=== PATIENT | male | born 1970 | race Caucasian/White ===

== ENCOUNTER → 2018-06-09 | Outpatient (REF) | payer MEDICARE, MEDICAID ==
[2018-06-09 15:49] LABS: HEMATOCRIT 38.8 % (39.0-50.0); HEMOGLOBIN 13.9 g/dl (14.0-18.0); IMMATURE GRANULOCYTES 0.1 % (0.0-5.0); MEAN CELL VOLUME 92.8 fL CALC (80.0-100.0); MEAN CORPUSCULAR HGB 33.3 pG CALC (26.0-32.0); MEAN CORPUSCULAR HGB CONC 35.8 g/L CALC (32.0-36.0); NEUT# 3.45 thou/uL (1.82-7.42); RED BLOOD COUNT 4.18 mill/uL (4.70-6.10)
[2018-06-09 16:10] LABS: ALBUMIN 3.6 g/dL (3.2-5.0); ALKALINE PHOSPHATASE 105 u/l (38-126); ANION GAP 13 (6-22 (CALC)); BILIRUBIN, TOTAL 0.4 mg/dL (0.0-1.4); BUN 14 mg/dL (9-20); BUN/CREATININE RATIO 14 (12-20 (CALC)); CARBON DIOXIDE 30 mmol/l (22-30); CHLORIDE 107 mmol/l (95-108); GFR > 60 ML/MIN (>=60 (CALC)); GFR FOR AFR.AMER. > 60 ML/MIN (>=60 (CALC)); SGOT/AST 24 u/l (17-59); SODIUM 146 mmol/l (137-146)
== END | disposition home or self-care (01) ==
LOC: LAB 15:34
PROVIDERS: ATTEND Internal Medicine Infectious Disease
DX: B18.2 Chronic viral hepatitis C (principal); R53.82 Chronic fatigue, unspecified; R74.0 Nonspecific elevation of levels of transaminase and lactic acid dehydrogenase [LDH]; Q90.9 Down syndrome, unspecified

== ENCOUNTER 2018-09-04 19:36 | Emergency (ER) | payer MEDICARE, MEDICAID ==
[~2018-09-04] VITALS: Ht 144.8 cm; Wt 42.0 kg
[2018-09-04] MEDS ORDERED: VITAMI16 PO (20:07)
[2018-09-04] MEDS ORDERED: VITAMIN D PO ×2 (20:08→20:09)
[2018-09-04 20:31] LABS: HEMATOCRIT 39.1 % (39.0-50.0); HEMOGLOBIN 13.5 g/dl (14.0-18.0); IMMATURE GRANULOCYTES 0.4 % (0.0-5.0); MEAN CELL VOLUME 93.3 fL CALC (80.0-100.0); MEAN CORPUSCULAR HGB 32.2 pG CALC (26.0-32.0); MEAN CORPUSCULAR HGB CONC 34.5 g/L CALC (32.0-36.0); NEUT# 11.7 thou/uL (1.82-7.42); RED BLOOD COUNT 4.19 mill/uL (4.70-6.10)
[2018-09-04 20:53] LABS: URINE BILIRUBIN - DIPSTICK NEGATIVE (NEGATIVE); URINE BLOOD DIPSTICK NEGATIVE (NEGATIVE); URINE COLOR YELLOW; URINE GLUCOSE - DIPSTICK NEGATIVE (NEGATIVE); URINE KETONE TRACE mg/dL (NEGATIVE); URINE LEUK ESTERASE NEGATIVE (NEGATIVE); URINE NITRITE - DIPSTICK NEGATIVE (Negative); URINE PROTEIN - DIPSTICK NEGATIVE (NEG-TRACE); URINE UROBILINOGEN - DIPSTICK 0.2 E.U./dL (0.2)
[2018-09-04] MEDS ORDERED: BIAXIN500 MG PO (20:59)
[2018-09-04 21:00] VITALS: BP 106/55
== END 2018-09-04 21:23 | disposition home or self-care (01) ==
LOC: ED 19:36
PROVIDERS: Family Medicine
DX: J20.9 Acute bronchitis, unspecified (principal); R09.1 Pleurisy; F79 Unspecified intellectual disabilities

== ENCOUNTER 2021-05-01 17:07 | Emergency (ER) | payer MEDICARE, MEDICAID ==
[~2021-05-01] VITALS: Ht 144.8 cm; Wt 44.0 kg
[~2021-05-01 17:07] MED LIST: BIAXIN500 MG PO; VITAMI16 PO; VITAMIN D PO
[2021-05-01 19:52] LABS: HEMATOCRIT 43.2 % (39.0-50.0); HEMOGLOBIN 14.6 g/dl (14.0-18.0); IMMATURE GRANULOCYTES 0.3 % (0.0-5.0); MEAN CELL VOLUME 92.9 fL CALC (80.0-100.0); MEAN CORPUSCULAR HGB 31.4 pG CALC (26.0-32.0); MEAN CORPUSCULAR HGB CONC 33.8 g/dL CAL (32.0-36.0); NEUT# 2.45 thou/uL (1.82-7.42); RED BLOOD COUNT 4.65 mill/uL (4.70-6.10); RED CELL DISTRI WIDTH 14.3 % (11.5-15.5)
[2021-05-01] MEDS ORDERED: VENTOLIN HFA IN (20:34)
[2021-05-01 22:20] VITALS: BP 118/41
== END 2021-05-01 22:21 | disposition home or self-care (01) ==
LOC: ED 17:07
PROVIDERS: Family Medicine
DX: U07.1 COVID-19 (principal); F79 Unspecified intellectual disabilities

== ENCOUNTER 2023-09-09 15:40 | Observation (INO) | payer MEDICARE, MEDICAID ==
[~2023-09-09] VITALS: Ht 121.9 cm; Wt 36.6 kg
[~2023-09-09 15:40] MED LIST changes: +VENTOLIN HFA IN
--- NOTE | 2023-09-09 16:00 | NUR ---
PT ARRIVED AT DIRACT ADMIT FROM DR. RODRIGUEZ, SISTER WITH PT. PT IS ALERT AND ORIENTED TO SELF ONLY, PT IS DEVELOPMENTALY DELAY. PT HAS NO C/O PAIN AT THIS TIME. PT LUNGS CLEAR THROUGHOUT. ABD IS SOFT WITH ACTIVE BS. PT AMBULATES WITH ONE ASSIST TO BATHROOM FOR TOILETING; PT SISTER STATES HE HAS ACCIDENTS AT TIMES AND MAY NEED A BREIF. PT HAS SMALL BLISTER IN MIDDLE UPPER BACK, PT FINGERS ON LEFT HAND ARE BRUISED; PT IS UNABLE TO EXPRESS REASON; ALSO, NOTED PT LEFT EYE IS BLACK. SISTER STATES PT IS HAVING FREQUENT FALLS AND THAT IS THE REASON FOR ASMISSION. PT HAS CALL LIGHT WITHIN REACH AND SAFETY MEASURES IN PLACE AT THIS TIME.
[2023-09-09 16:07] VITALS: BP 107/51
[2023-09-09 21:00] VITALS: BP 89/45
--- NOTE | 2023-09-09 21:00 | NUR ---
PATIENT RESTING IN BED AT THIS TIME WITH SISTER ELEONORA AT BEDSIDE. PATIENT IS AWAKE AND ALERT-ORIENTED TO SELF ONLY. PATIENT IS WITH SOME DEVELOPMENT DELAYS. ELEONORA STATES THAT THE PATIENT DOES LIVE WITH HER. HAS HX OF RECENT FALLS AT HOME. PATIENT WITH LEFT EYE ECCYMOSIS. PATIENT WAS MEDICATED EALIER WITH ATIVAN AND TYLENOL. LAB WORK WAS DRAWN FROM [facility] WITHOUT ANY DIFFICULTY. SPEC SENT TO LAB. BED ALARM IN PLACE FOR PATIENT SAFETY. CALL LIGHT IN REACH. WILL CONT TO MONITOR.
[2023-09-09 21:01] VITALS: BP 94/42
--- NOTE | 2023-09-09 21:30 | NUR ---
PT HAD A BP OF 89/45 @2100. NOTIFIED THE NURSE TANG @0731.
[2023-09-09 22:05] LABS: BASO% 0.6 % (0-3); EOS% 1.8 % (0-8); IMMATURE GRANULOCYTES 0.1 % (0.0-5.0); LYMPH% 28.2 % (15-41); MEAN CELL VOLUME 90.3 fL CALC (80.0-100.0); MEAN CORPUSCULAR HGB 30.5 pG CALC (26.0-32.0); MEAN CORPUSCULAR HGB CONC 33.8 g/dL CAL (32.0-36.0); MONO% 8.6 % (2-13); NEUT# 4.35 thou/uL (1.82-7.42); NEUT% 60.7 % (42-76); RED BLOOD COUNT 3.9 mill/uL (4.70-6.10); RED CELL DISTRI WIDTH 15.2 % (11.5-15.5)
[2023-09-09 22:07] LABS: HEMATOCRIT 35.2 % (39.0-50.0); HEMOGLOBIN 11.9 g/dl (14.0-18.0)
[2023-09-09 22:18] LABS: ALKALINE PHOSPHATASE 69 u/l (38-126); ANION GAP 8 (6-22 (CALC)); BUN 20 mg/dL (9-20); BUN/CREATININE RATIO 16 (12-20 (CALC)); CARBON DIOXIDE 31 mmol/l (22-30); CHLORIDE 105 mmol/l (95-108); CREATININE 1.2 mg/dL (0.7-1.3); GFR FOR AFR.AMER. > 60 ML/MIN (>=60 (CALC)); GFR OTHER RACES > 60 ML/MIN (>=60 (CALC)); POTASSIUM 4.1 mmol/l (3.5-5.1); SGOT/AST 51 u/l (17-59); SODIUM 139 mmol/l (137-146)
[2023-09-09 22:30] LABS: ALBUMIN 3.2 g/dL (3.2-5.0); BILIRUBIN, TOTAL 0.2 mg/dL (0.2-1.3)
[2023-09-09 22:48] LABS: TSH, 3RD GENERATION 4.34 uIU/mL (0.47 - 4.68)
--- NOTE | 2023-09-10 | NUR ---
PATIENT RESTING IN BED WITH EYES CLOSED. RESPS ARE EVEN AND UNLABORED. CALL LIGHT IN REACH. BED ALARM IN PLACE FOR PATIENT SAFETY. CALL LIGHT IN REACH. WILL CONT TO MONITOR.
--- NOTE | 2023-09-10 04:00 | NUR ---
PATIENT RESTING IN BED AT THIS TIME-PATIENT HAS BEEN SLEEPING MOST OF THE NIGHT. INCONT OF URINE AND PROVIDED WITH PERICARE AND BREIF REAPPLIED. VS TAKEN AND RECORDED. ASKING FOR BREAKFAST. BED ALARM IN PLACE FOR PTIENT SAFETY. CALL LIGHT IN REACH. WILL CONT TO MONITOR.
[2023-09-10 04:30] VITALS: BP 94/60
[2023-09-10 07:12] VITALS: BP 100/39
--- NOTE | 2023-09-10 08:00 | NUR ---
PT RESTING IN BED. ASSESSMENT COMPLETE. BRUISE NOTED TO THE LEFT EYE. PT ABLE TO OBEY COMMANDS. FALL/SAFTEY PRECAUTION IN PLACE, CALL LIGHT WITHIN REACH.
--- NOTE | 2023-09-10 08:30 | NUR ---
PT EATING BREAKFAST, NO DISTRESS NOTED. FALL/SAFTEY PRECAUTIJNO IN PLACE. BED ALARM ACTIVATED.
--- NOTE | 2023-09-10 12:00 | NUR ---
PT EATING LUNCH WITH FAMILY MEMBER AT BEDSIDE. NO DISTRESS NOTED. FALL/SAFTEY PRECAUTION IN PLACEL. CALL LIGHT WITHIN REACH
[2023-09-10 15:07] VITALS: BP 97/53
--- NOTE | 2023-09-10 16:00 | NUR ---
PT RESTING IN BED WATCHING TV. BREATHING EVEN AND UNLABORED. NO DISTRESS NOTED. NO IV, MD AWARE.REORIENTATED PT TO ROOM AND CALL XAVIER SYSTEM. FALL/SAFTEY PRECAUTION IN PLACE, CALL LIGHT WITHIN REACH
[2023-09-10 19:11] VITALS: BP 107/50
[2023-09-10 20:00] VITALS: BP 107/50
--- NOTE | 2023-09-10 20:00 | NUR ---
RECEIVED REPORT FROM NURSE RAIN, PATIENT RESTING IN BED, PATINET NO IV. PATIENT ALERT TO NAME, PATIENT IS DEVELOPMENTALLY DELAYED, YELLS WHEN WANTED TO VOID, PATINET LUNGS CLEAR, STATED HUNGRY, PUDDING GIVEN PATINET ON BED ALARM , CALL LIGHT IN REACH.
--- NOTE | 2023-09-11 00:45 | NUR ---
PATINET RESTING IN BED, EYES CLOSED, BREATHING EVEN UNLABORED, CALL LIGHT IN REACH.
[2023-09-11 03:51] LABS: URINE BILIRUBIN - DIPSTICK Negative (NEGATIVE); URINE BLOOD DIPSTICK Negative (NEGATIVE); URINE CLARITY Cloudy; URINE GLUCOSE - DIPSTICK Negative (NEGATIVE); URINE KETONE Negative (NEGATIVE); URINE LEUK ESTERASE Negative (Negative); URINE NITRITE - DIPSTICK Negative (Negative); URINE PH 8.5 (4.5-8.0); URINE PROTEIN - DIPSTICK Negative (NEG-TRACE); URINE UROBILINOGEN - DIPSTICK 0.2 E.U./dL (0.2)
[2023-09-11 04:01] VITALS: BP 101/52
--- NOTE | 2023-09-11 04:09 | NUR ---
PATINET RESTING IN BED, NOT IN DISTRESS, NO DISCOMFORTS NOTED, BREATHING UNLABORED, BED ALARM IN PLACED.
[2023-09-11 04:24] LABS: URINE COLOR Yellow
[2023-09-11 05:17] LABS: BASO% 0.4 % (0-3); EOS% 1.4 % (0-8); HEMATOCRIT 39.5 % (39.0-50.0); HEMOGLOBIN 13.1 g/dl (14.0-18.0); IMMATURE GRANULOCYTES 0.1 % (0.0-5.0); LYMPH% 22.3 % (15-41); MEAN CELL VOLUME 91.4 fL CALC (80.0-100.0); MEAN CORPUSCULAR HGB 30.3 pG CALC (26.0-32.0); MEAN CORPUSCULAR HGB CONC 33.2 g/dL CAL (32.0-36.0); MONO% 9.2 % (2-13); NEUT# 5.39 thou/uL (1.82-7.42); NEUT% 66.6 % (42-76); RED BLOOD COUNT 4.32 mill/uL (4.70-6.10); RED CELL DISTRI WIDTH 15.3 % (11.5-15.5)
[2023-09-11 05:43] LABS: ALBUMIN 3.5 g/dL (3.2-5.0); ALKALINE PHOSPHATASE 64 u/l (38-126); ANION GAP 8 (6-22 (CALC)); BILIRUBIN, TOTAL 0.3 mg/dL (0.2-1.3); BUN 19 mg/dL (9-20); BUN/CREATININE RATIO 24 (12-20 (CALC)); CARBON DIOXIDE 32 mmol/l (22-30); CHLORIDE 105 mmol/l (95-108); CREATININE 0.8 mg/dL (0.7-1.3); GFR FOR AFR.AMER. > 60 ML/MIN (>=60 (CALC)); GFR OTHER RACES > 60 ML/MIN (>=60 (CALC)); MAGNESIUM 2.2 mg/dL (1.6-2.3); POTASSIUM 4.4 mmol/l (3.5-5.1); SGOT/AST 40 u/l (17-59); SODIUM 140 mmol/l (137-146); TOTAL PROTEIN 6.6 g/dL (6.3-8.2)
--- NOTE | 2023-09-11 08:10 | NUR ---
PT EATING BREAKFAST. PT ALERT ABLE TO SAY NAME. ABLE TO OBEY COMMAND. NO IV. MD AWARE. PEDAL PULSES PALPABLE BILATERALLY. ECCYMOSIS TO THE LEFT EYE. ASSESSMENT COMPLETED. BED ALARM ACTIVATED. FALL/SAFTEY PRECAUTIONS IN PLACE. CALL LIGHT WITHIN REACH
--- NOTE | 2023-09-11 11:59 | NUR ---
PT EATING LUNCH. NO DISTRESS NOTED. BREATHING EVEN AND UNLABORED. BED ALARM ACTIVE. FALL/SAFTEY PRECAUTIONS IN PLACE. CALL LIGHT WITHIN REACH,
[2023-09-11 16:00] VITALS: BP 112/64
--- NOTE | 2023-09-11 17:40 | NUR ---
PT RESTING IN BED SLEEPING. BREATHING EVEN AND UNLABORED. NO DISTRESS NOTED. FALL/SAFTEY PRECAUTION IN PLACE. CALL LIGHT WITHIN REACH
[2023-09-11 19:51] VITALS: BP 106/54
--- NOTE | 2023-09-11 20:00 | NUR ---
RECEIVED REPORT FROM NURSE RAIN, PATIENT ALERT TO NAME, NOTED BRUISE ON LEFT EYE. PATINENT NO IV, PATIENT NOTED EATING DINER. PATINET NOT IN DISTRESS, BED ALARM IN PLACED.
--- NOTE | 2023-09-12 00:14 | NUR ---
PATINET AWAKE, UNABLE TO REST PRN ATIVAN GIVEN, PATINET BREATHING UNLABORED CALL LIGHT IN REACH.
--- NOTE | 2023-09-12 03:45 | NUR ---
PATIENT RESTING IN BED NOT IN DSITRESS,CALL LIGHT IN REACH,BED ALAMR IN PLCAED.
[2023-09-12 04:58] VITALS: BP 95/43
[2023-09-12 06:58] VITALS: BP 103/54
--- NOTE | 2023-09-12 07:25 | NUR ---
PT AWAKE IN BED AT THIS TIME, NO COMPLAINTS OF PAIN.
[2023-09-12 10:51] VITALS: BP 110/59
--- NOTE | 2023-09-12 12:11 | NUR ---
MD AT BEDSIDE DISCUSSING PLAN OF CARE WITH PT AND FAMILY.
[2023-09-12 15:26] VITALS: BP 98/49
[2023-09-12 15:45] VITALS: BP 98/49
[2023-09-12 19:39] VITALS: BP 101/56
--- NOTE | 2023-09-12 23:51 | NUR ---
PT PLEASANT AND COOPERATIVE. RESP ARE EVEN/NON LABORED. VSS. BED ALARM ON FOR SAFETY. TURNED AND REPOSITIONED Q 2HRS. TOP BED RAILS UP. BED IS LOCKED. CALL LIGHT IN REACH
[2023-09-13 04:06] VITALS: BP 90/45
--- NOTE | 2023-09-13 04:56 | NUR ---
pt refused am vitals except for bp. bryce fluids well. pt was given ativan at hs for relestness. slept intermittently. brief changed. safety precautions maintained. bed rails up. bed alarm is on
--- NOTE | 2023-09-13 07:20 | NUR ---
RECIEVED REPORT FROM LESLEY, PT IS ASLEEP AT THIS TIME. BED IN LOW POSITION WITH BED ALARM ON. WILL CONTUINE TO MONITOR.
[2023-09-13 07:25] VITALS: BP 91/46
--- NOTE | 2023-09-13 08:00 | NUR ---
PT SITTING UP IN CHAIR EATING BREAKFAST AT THIS TIME.
[2023-09-13 08:19] VITALS: BP 91/46
[2023-09-13 15:23] VITALS: BP 101/53
[2023-09-13 15:25] VITALS: BP 100/48
[2023-09-13 15:49] VITALS: BP 100/48
[2023-09-13] MEDS ORDERED: ATIVAN0.5 MG PO ×2 (16:02→16:05)
--- NOTE | 2023-09-13 16:40 | NUR ---
REVIEWED DISCHARGE INSTRUCTIONS WITH THE POA. WAITING FOR [facility] NOW.
--- NOTE | 2023-09-13 16:48 | NUR ---
REPORT CALLED TO LEO AT [facility].
== END 2023-09-13 17:00 ==
LOC: MS2 15:40
PROVIDERS: Internal Medicine; Nurse Practitioner Family; ADMIT Student in an Organized Health Care Education/Training Program; ATTEND Student in an Organized Health Care Education/Training Program
DX: Q90.9 Down syndrome, unspecified (principal); R46.89 Other symptoms and signs involving appearance and behavior; R53.1 Weakness; I95.9 Hypotension, unspecified; R26.81 Unsteadiness on feet; R26.89 Other abnormalities of gait and mobility; F41.9 Anxiety disorder, unspecified; S00.12XA Contusion of left eyelid and periocular area, initial encounter; W19.XXXA Unspecified fall, initial encounter; Y92.009 Unspecified place in unspecified non-institutional (private) residence as the place of occurrence of the external cause; Z87.74 Personal history of (corrected) congenital malformations of heart and circulatory system; Z91.81 History of falling; Z74.2 Need for assistance at home and no other household member able to render care